=== PATIENT | female | born 1945 | race Caucasian/White ===

== ENCOUNTER 2021-03-31 07:45 | Outpatient (CLI) | payer MEDICARE, SELFPAY ==
--- NOTE | 2021-03-31 08:00 | ECG_ITS ---
Measurements Intervals [place] Rate: 56 P: 72 RI: 197 QRS: 15 QRSD: 95 T: 30 QT: 387 QTc: 375 Interpretive Statements SINUS BRADYCARDIA DELAYED PRECORDIAL R/S TRANSITION BASELINE ARTIFACT- I, II, III, AVR, AVL, AVF, V1-V6 BORDERLINE ECG Electronically Signed On 03-31-2021 8:16:27 CDT by Hernandez Guzman D.O.
[2021-03-31 08:17] LABS: Amylase 49 U/L (30-110)
== END 2021-03-31 07:46 | disposition home or self-care (01) ==
LOC: ANHSURGERY 07:49
PROVIDERS: PCP Family Medicine; Visit Provider Surgery
DX: Z01.818 Encounter for other preprocedural examination (principal); K80.10 Calculus of gallbladder with chronic cholecystitis without obstruction; R00.1 Bradycardia, unspecified
CPT/HCPCS: 36415; 82150; 86850; 86900; 86901; 93005

== ENCOUNTER 2021-04-05 01:44 | Day surgery (SDC) | payer MEDICARE, SELFPAY ==
[2021-03-30 13:34] VITALS: BMI 27.4
[2021-04-05] VITALS (9 sets, daily range): BP systolic 149–179; BP diastolic 45–98; PULSE 47–97; RESP 12–20; TEMP 36.4–36.8; O2SAT 98–100
--- NOTE | 2021-04-05 12:08 | WPDHPUPDATE1 ---
History and Physical Update Update Date/Time: 04/05/21 12:08 History and Physical has been reviewed, including an updated exam of the patient. There are NO changes in the patient's condition. Risks, benefits, and alternatives have been discussed and questions answered. Patient agrees to proceed with procedure.
[2021-04-05] MEDS: ACETAMINOPHEN 500 MG TABLET 1000 MG PO (12:16)
[2021-04-05] MEDS: LACTATED RINGERS 1,000 ML 30 ML IV CONT ×2 (12:42→14:45)
[2021-04-05 12:50] LABS: Glucose Point of Care 94 mg/dl (65-105)
--- NOTE | 2021-04-05 12:50 | WPDANESEPPF ---
Anes - Initial Pre Proc Eval Procedure: Operation Date: 04/05/21 13:30 Proposed Procedures p Laparoscopic Cholecystectomy - Melony Edwards MD Date/Time: 04/05/21 12:50 Surgeon: Melony Edwards MD Pre Op Diagnosis: cholecystitis with stones Patient Data Age: 76 Gender: F Height: 1.63 m Weight: 72.6 kg Last Vital Signs Temp 36.8 C 04/05/21 11:42 Pulse 63 04/05/21 11:42 Resp 20 04/05/21 11:42 BP 162/53 H 04/05/21 11:42 Pulse Ox 100 04/05/21 11:42 Allergies Allergy/AdvReac Type Severity Reaction Status Date / Time naproxen [From Aleve] Allergy Severe Swelling Verified 04/05/21 12:13 of Lip/Tongue/Throat amoxicillin AdvReac Severe Vomiting Verified 04/05/21 12:13 clavulanic acid AdvReac Severe Vomiting Verified 04/05/21 12:13 [From Augmentin] Home Medications Medication Instructions Recorded Confirmed Type cholecalciferol (vitamin D3) 125 125 mcg PO DAILY 03/29/21 04/05/21 History mcg (5,000 unit) capsule coenzyme Q10 60 mg tablet 200 mg PO DAILY 03/29/21 04/05/21 History lisinopril 10 mg tablet 10 mg PO DAILY 03/29/21 04/05/21 History lutein 20 mg capsule 20 mg PO DAILY 03/29/21 04/05/21 History metformin 500 mg tablet 500 mg PO DAILY 03/29/21 04/05/21 History omeprazole 40 mg capsule,delayed 40 mg PO DAILY 03/29/21 04/05/21 History release simvastatin 20 mg tablet 20 mg PO DAILY 03/29/21 04/05/21 History Laboratory Tests 04/05/21 12:45 POC Capillary Glucose Pending Patient hx anesthesia problems: post op nausea/vomiting Family hx anesthesia problems: post op nausea/vomiting PMFSH Past Medical History Medical History Diabetes Fatty liver Hyperlipidemia Hypertension Social History Social History Smoking status: Never smoker Alcohol intake: current Drinks per week: 3 Living arrangements: with family Spiritual care concerns: No Anes - Eval Final PreProcedure Day of Procedure 04/05/21 12:50 Patient weight: overweight Heart: regular rate and rhythm Lungs: clear to auscultation Airway: Mallampati scale class II Neurological: alert and oriented Last oral intake: >/= 8 hours ASA classification: III Emergent: no Anesthetic plan: proceed Anesthesia type and monitoring: general ETT and standard monitoring Informed Consent: The patient's anesthetic plan and its attendant risks and benefits were discussed with the patient/family/POA. Questions were solicited and answers provided to the satisfaction of the patient/family/POA.
[2021-04-05] MEDS: SCOPOLAMINE 1.5 MG PATCH TRANSDERM (12:59)
[2021-04-05] MEDS: ceFAZolin 2 GM/D5W 50 ML 2 GM/50 ML BAG IVPB (13:50)
--- NOTE | 2021-04-05 14:34 | P.OP_ITS ---
Procedure Note - Detailed Date of Procedure 04/05/21 Pre-op Diagnosis cholecystitis with stones Post-op Diagnosis same Procedure Performed laparoscopic cholecystectomy Surgeon Melony Edwards MD Anesthesia general Indications 76 y/o F presenting c chronic cholecystitis, cholelithiasis by both history and imaging Findings chronic cholecystitis, cholelithiasis Description of Procedure The patient was taken to the operating room placed in the supine position. After adequate induction of general anesthesia, the patient was prepped and draped in normal sterile fashion. A time-out was then performed to verify the patient's identity as well as the procedure being performed. I then made a 5 mm incision in the infraumbilical region. Through this, a Veress needle was placed into the peritoneal cavity and CO2 gas was then insufflated. After adequate pneumoperitoneum was achieved, the Veress needle was removed and a 5 mm optiview trocar was placed through this incision under direct visualization. I then pl aced the laparoscope through this trocar site and under direct visualization placed a further 12 mm subxiphoid port as well as 2 additional 5 mm ports in the right upper abdomen. The gallbladder was then identified and was noted to be moderately inflamed, distended, and full of gallstones. I was able to place a grasper at the dome of the gallbladder and this was retracted anterior and cephalad up over the liver. A 2nd retractor was then placed at the infundibulum and retracted laterally, this allowed visualization of the triangle of Calot. I then was able to visualize the cystic duct in its entirety from its proximal insertion into the gallbladder, to its distal junction with the common hepatic/common bile duct junction. At this point, I carefully skeletonized the proximal cystic duct with the [place] dissector. I then clipped and transected the proximal cystic duct. Next I visualized the cystic artery. Again the artery was skeletonized, clipped, and transected. I then used the Bovie cautery to take down the peritoneal attachments of the gallbladder off the liver bed. This was somewhat difficult given the amount of inflammation in the posterior space. Once the gallbladder specimen was completely detached, an endo-pouch was placed through the 12 mm port site. I then placed the gallbladder specimen into the Endo pouch and removed the endo-pouch from the 12 mm port site. The specimen will now be sent to pathology for further review. I then copiously irrigated the right upper quadrant. Some mild oozing was noted in the liver bed and this was controlled with the bovie cautery. I then placed some hemostatic powder in the liver bed. Hemostasis was noted in the liver bed, the clips were noted to be in good position on both the cystic duct stump and the cystic artery stump. No other pathology was noted in the right upper quadrant. I then moved the laparoscope to the subxiphoid port. No iatrogenic injury or other pathology was noted in the lower abdomen. I then closed the 12 mm trocar site under direct visualization using the Gary cone and 0 Vicryl suture. At this point, the abdomen was desufflated and all ports removed. All port sites were then c losed with 4.O Monocryl subcuticular sutures. Dermabond was placed on each incision. The patient tolerated the procedure well, was extubated in the operating room postoperative and will be transferred to the recovery room in stable condition Estimated Blood Loss 20 Drains No Packing No Pathology yes Complications No immediate complications Condition stable Disposition PACU
[2021-04-05 15:02] LABS: Glucose Point of Care 138 mg/dl (65-105)
[2021-04-05] MEDS: ONDANSETRON INJ 4 MG/2 ML VIAL IV PUSH (15:02)
[2021-04-05] MEDS: fentaNYL CITRATE INJ (*CRX) 100 MCG/2 ML VIAL 25 MCG IV PUSH ×5 (15:09→15:33)
[2021-04-05] MEDS: diphenhydrAMINE HCl INJ 50 MG/ML VIAL 25 MG IV PUSH (16:27)
== END 2021-04-05 16:55 | disposition home or self-care (01) ==
PROVIDERS: PCP Family Medicine; Visit Provider Surgery
PROC: 0FT44ZZ Resection of Gallbladder, Percutaneous Endoscopic Approach (ICD-10-PCS; CPT 47562; principal; 2021-04-05 13:30)
DX: K80.10 Calculus of gallbladder with chronic cholecystitis without obstruction (principal); I10 Essential (primary) hypertension; E11.9 Type 2 diabetes mellitus without complications; E78.5 Hyperlipidemia, unspecified; K76.0 Fatty (change of) liver, not elsewhere classified; Z79.84 Long term (current) use of oral hypoglycemic drugs
CPT/HCPCS: 47562; 36415; 82150; 82948; 86850; 86900; 86901; 88304; 93005; A9270; J0690; J1200; J2405; J3010; J7030; J7120